=== PATIENT | male | born 1975 ===

== ENCOUNTER 2018-12-08 14:18 | Emergency (ER) | payer OTHER ==
[2018-12-08 14:25] VITALS: BP 104/66; PULSE 82; RESP 18; TEMP 98.6; O2SAT 96
[2018-12-08] MEDS ORDERED: Albuterol 0.083% Inhal Sol (2.5 mg/3 mL) UD INH STA (14:44)
[2018-12-08 15:10] LABS: BASO # 0.1 K/uL (0.0-0.2); BASO % 1.3 % (0.0-2.0); EOS # 0.1 K/uL (0.0-0.7); EOS % 1.2 % (0.0-4.0); HEMOGLOBIN 12.4 g/dL (12.0-18.0); LYMPH # 1.8 K/uL (1.0-4.3); LYMPH % 19.8 % (20.0-40.0); MEAN CELL VOLUME 72.6 fl (80.0-94.0); MEAN CORPUSCULAR HEMOGLOBIN 23.2 pg (27.0-31.0); MEAN PLATELET VOLUME 8.9 fl (7.2-11.7); MONO # 0.8 K/uL (0.0-0.8); MONO % 8.5 % (0.0-10.0); NEUT # 6.3 K/uL (1.8-7.0); NEUT % 69.2 % (50.0-75.0); NRBC % 0.1 % (0.0-0.0); RBC 5.33 Mil/uL (4.40-5.90); RED CELL DISTRIBUTION WIDTH 16.2 % (11.5-14.5); WHITE BLOOD COUNT 9.1 K/uL (4.8-10.8)
[2018-12-08] MEDS ORDERED: Albuterol 0.083% Inhal Sol (2.5 mg/3 mL) UD ONE (15:12)
[2018-12-08 15:21] LABS: URINE BACTERIA RARE (<OCC); URINE BILIRUBIN NEGATIVE (NEGATIVE); URINE BLOOD NEGATIVE (NEGATIVE); URINE CLARITY SLIGHTY-CLOUDY (Clear); URINE COLOR YELLOW (YELLOW); URINE GLUCOSE (UA) NEG (NEGATIVE); URINE LEUKOCYTE ESTERASE TRACE Leu/uL (Negative); URINE PROTEIN NEGATIVE (NEGATIVE); URINE UROBILINOGEN 0.2-1.0 mg/dL (0.2-1.0)
[2018-12-08 15:24] LABS: ALB/GLOB RATIO 1.4 (1.0-2.1); ALBUMIN 4.5 g/dL (3.5-5.0); ALT/SGPT 23 U/L (21-72); AST/SGOT 26 U/L (17-59); BLOOD UREA NITROGEN 21 mg/dl (9-20); CALCIUM 9.4 mg/dL (8.4-10.2); GFR NON-AFRICAN AMERICAN > 60
--- NOTE | 2018-12-08 15:34 | RAD ---
Date of service: 12/08/2018 HISTORY: Cough COMPARISON: No prior. TECHNIQUE: Chest PA and lateral FINDINGS: LINES AND TUBES: None. LUNG AND PLEURA: The lungs are well inflated and clear. No pleural effusion or pneumothorax. HEART AND MEDIASTINUM: The heart is not enlarged. No aortic atherosclerotic calcifications present. The hilar and mediastinal contours are within normal limits. SKELETAL STRUCTURES: The bony structures are within normal limits for the patient's age. VISUALIZED UPPER ABDOMEN: Normal. OTHER FINDINGS: None. IMPRESSION: No active pulmonary disease.
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
== END 2018-12-08 16:18 | disposition home or self-care (01) ==
LOC: H.ER 14:18 → SUPCPDRO 14:18 → H.ER 16:18
DX: M54.9 Dorsalgia, unspecified (principal); R05 Cough; F17.200 Nicotine dependence, unspecified, uncomplicated

== ENCOUNTER 2018-12-24 09:04 | Inpatient (IN) | payer OTHER ==
[2018-12-24 09:30] VITALS: O2SAT 100
[2018-12-24] MEDS ORDERED: Sodium Chloride 0.9% 1,000 ML IV STA (09:32)
[2018-12-24 10:15] LABS: BASO % 0.2 % (0.0-2.0); EOS % 0.3 % (0.0-4.0); HEMOGLOBIN 14.4 g/dL (12.0-18.0); LYMPH # 1.4 K/uL (1.0-4.3); LYMPH % 16.4 % (20.0-40.0); MEAN CELL VOLUME 72.4 fl (80.0-94.0); MEAN CORPUSCULAR HEMOGLOBIN 23.3 pg (27.0-31.0); MEAN CORPUSCULAR HGB CONC 32.2 g/dL (33.0-37.0); MEAN PLATELET VOLUME 9.6 fl (7.2-11.7); NEUT # 6.1 K/uL (1.8-7.0); NEUT % 71.1 % (50.0-75.0); NRBC % 0.1 % (0.0-0.0); RBC 6.18 Mil/uL (4.40-5.90); WHITE BLOOD COUNT 8.6 K/uL (4.8-10.8)
--- NOTE | 2018-12-24 11:36 | ED PDOC ---
HPI: Psych/Substance Abuse Time Seen by Provider: 12/24/18 09:13 Chief Complaint (Nursing): Substance Abuse Chief Complaint (Provider): Substance Abuse History Per: Patient History/Exam Limitations: no limitations Onset/Duration Of Symptoms: Days Associated Symptoms: Suicidal Thoughts. denies: Suicidal Plan Additional Complaint(s): 43 year old male with a history of heroin dependence who is presenting to the ED for evaluation of withdrawal symptoms associated with nausea, vomiting, back, and chest pain. Patient states that his last use was 3 days ago and admits that he was seen here a few days ago for cough and URI symptoms. He reports that he got a chest x-ray and was discharged home with a prescription but could not afford it. Patient states that he vomited 5 times and described it as a yellow clear fluid. He also states that he had non-bloody diarrhea and reports suicidal ideation with no verbalized plan. Patient offers no other medical complaints at this time but states that he wants assistance in entering a detoxification. PMD: none provided Past Medical History Reviewed: Historical Data, Nursing Documentation, Vital Signs Vital Signs: Last Vital Signs Temp 98.4 F 12/24/18 09:15 Pulse 64 12/24/18 09:15 Resp 20 12/24/18 09:15 BP 130/93 H 12/24/18 09:15 Pulse Ox 100 12/24/18 09:15 - Medical History PMH: No Chronic Diseases Denies: Deep Vein Thrombosis, Pulmonary Embolism - Surgical History Other surgeries: chest surgery - Family History Family History: States: Unknown Family Hx - Social History Current smoker - smoking cessation education provided: Yes (a pack a day ) Alcohol: Social Drugs: Cannabis, Opiates - Home Medications Home Medications: Ambulatory Orders Medication Instructions Recorded Albuterol HFA [Ventolin HFA 90 2 puff IH [id number] PRN #120 puff 12/08/18 mcg/actuation (8 g)] Azithromycin [Zithromax] 250 mg PO DAILY #6 tab 12/08/18 Promethazine DM [Phenergan DM 5 - 10 ml PO Q8 PRN #120 ml 12/08/18 Syrup] - Allergies Allergies/Adverse Reactions: Allergies Allergy/AdvReac Type Severity Reaction Status Date / Time No Known Allergies Allergy Verified 12/24/18 09:26 Review of Systems ROS Statement: Except As Marked, All Systems Reviewed And Found Negative Cardiovascular: Positive for: Chest Pain Gastrointestinal: Positive for: Nausea, Vomiting, Diarrhea Musculoskeletal: Positive for: Back Pain Psych: Positive for: Suicidal ideation Physical Exam - Reviewed Nursing Documentation Reviewed: Yes Vital Signs Reviewed: Yes - Physical Exam Appears: Positive for: Non-toxic, No Acute Distress Head Exam: Positive for: ATRAUMATIC, NORMAL INSPECTION, NORMOCEPHALIC Skin: Positive for: Normal Color, Warm, DRY Eye Exam: Positive for: EOMI, Normal appearance, PERRL ENT: Positive for: Other (dry mucous membranes ) Neck: Positive for: Normal, Painless ROM, Supple Cardiovascular/Chest: Positive for: Regular Rate, Rhythm. Negative for: Murmur Respiratory: Positive for: Normal Breath Sounds. Negative for: Respiratory Distress Gastrointestinal/Abdominal: Positive for: Normal Exam, Soft. Negative for: Tenderness Extremity: Positive for: Normal ROM. Negative for: Deformity, Swelling Neurological/Psych: Positive for: Awake, Alert, Normal Tone, Oriented (x3). Negative for: Motor/Sensory Deficits - Laboratory Results Result Diagrams: 12/24/18 10:03 12/24/18 10:03 - ECG O2 Sat by Pulse Oximetry: 100 (RA) Pulse Ox Interpretation: Normal Medical Decision Making Medical Decision Making: Time: 9:50 Impression: 43 year old male with suicidal ideation in setting of heroin dependence Plan: --EKG --Alcohol Serum --CMP --Urine Drug Screen --Crisis Evaluation --ED Urine Dipstick --CBC --IV Fluids --Toradol 30 mg IVP --Zofran 4 mg IV --1:1 Observation --urinalysis 12:45 Labs reviewed with no clinically significant abnormalities. Patient evaluated by crisis and will be admitted for depression and heroin dependence. He is medically cleared for psychiatric admission. Scribe Attestation: Documented by Lita Zarate, acting as a scribe for Berny Wood MD. Provider Scribe Attestation: All medical record entries made by the Scribe were at my direction and personally dictated by me. I have reviewed the chart and agree that the record accurately reflects my personal performance of the history, physical exam, medical decision making, and the department course for this patient. I have also personally directed, reviewed, and agree with the discharge instructions and disposition. Disposition - Clinical Impression Clinical Impression: Depression, Heroin dependence - Patient ED Disposition Is Patient to be Admitted: Yes - Disposition Disposition Time: 12:50 Condition: STABLE Forms: [employer] (Turkish)
[2018-12-24 11:42] LABS: ALB/GLOB RATIO 1.4 (1.0-2.1); ALBUMIN 4.6 g/dL (3.5-5.0); ALT/SGPT 28 U/L (21-72); AST/SGOT 23 U/L (17-59); BLOOD UREA NITROGEN 20 mg/dl (9-20); CALCIUM 9.8 mg/dL (8.4-10.2); GFR NON-AFRICAN AMERICAN > 60
[2018-12-24 12:21] LABS: PHENCYCLIDINE, UR NEGATIVE (NEGATIVE)
[2018-12-24 12:26] LABS: BARBITURATES, UR NEGATIVE (NEGATIVE); BENZODIAZEPINES, UR NEGATIVE (NEGATIVE); OPIATES, UR POSITIVE (NEGATIVE)
[2018-12-24 12:37] LABS: SQUAMOUS EPITHIAL < 1 /hpf (0-5); URINE AMORPHOUS SEDIMENT MANY /ul (<OCC); URINE BACTERIA RARE (<OCC); URINE BILIRUBIN NEGATIVE (NEGATIVE); URINE BLOOD NEGATIVE (NEGATIVE); URINE CLARITY TURBID (Clear); URINE COLOR YELLOW (YELLOW); URINE GLUCOSE (UA) NEG (NEGATIVE); URINE LEUKOCYTE ESTERASE NEG Leu/uL (Negative); URINE PROTEIN NEGATIVE (NEGATIVE)
--- NOTE | 2018-12-24 14:17 | RAD ---
Date of service: 12/24/2018 HISTORY: admit COMPARISON: 12/08/2018. FINDINGS: LUNGS: No active pulmonary disease. PLEURA: No significant pleural effusion identified, no pneumothorax apparent. CARDIOVASCULAR: No atherosclerotic calcification present Normal. OSSEOUS STRUCTURES: No significant abnormalities. VISUALIZED UPPER ABDOMEN: Normal. OTHER FINDINGS: None. IMPRESSION: No active disease. No significant interval change compared to the prior examination(s).
[2018-12-24] MEDS ORDERED: Alum-Mag Hydrox-Simethicone Susp (30 mL) PO PRN (15:02)
[2018-12-24] MEDS ORDERED: Magnesium Hydroxide Susp 30 ml UD PO PRN (15:02)
[2018-12-24] MEDS ORDERED: DiphenhydrAMINE 50 mg/ml Inj IM PRN (15:02)
--- NOTE | 2018-12-24 17:12 | PCM.BM ---
<Amada Godoy - Last Filed: 12/24/18 17:13> Treatment Plan Problems - Problems identified on initial assessmt Auditory Hallucinations Date Initiated: 12/24/18 Time Initiated: 17:10 Assessment reference: NA Inefffective Coping Date Initiated: 12/24/18 Time Initiated: 17:10 Assessment reference: NA Fellings of Worthlessness Date Initiated: 12/24/18 Time Initiated: 17:10 Assessment reference: NA Treatment assets and liabiliti Patient Assests: cooperative, educated, motivated, ADL independent Patient Liabilities: live alone, financial problems (worried about loosing his kob due to staying in hospital), relationship conflicts (broke up with girlfriend), substance abuse, medical problems (penumonia, hep c) - Milieu Protocol Maintain good personal hygiene: daily Encourage regular showers, daily Remind patient to perform daily oral care, daily Assist patient to perform ADL's Maintain personal safety: daily Educate patient to report safety concerns to staff, daily Monitor environment for contraband/sharps, every shift Educate patient to report safety concerns to staff, every shift Monitor environment for contraband/sharps Medication safety: Monitor for expected outcome, potential side effects: daily, every shift, Assess barriers to learning: daily, every shift, Assess readiness for medication education: daily, every shift <Jenny Matthews - Last Filed: 12/27/18 14:54> <Everton Reyes - Last Filed: 12/28/18 10:20> Treatment Plan Problems - Problems identified on initial assessmt Auditory Hallucinations Date Initiated: 12/24/18 Time Initiated: 17:10 Assessment reference: NA Inefffective Coping Date Initiated: 12/24/18 Time Initiated: 17:10 Assessment reference: NA Fellings of Worthlessness Date Initiated: 12/24/18 Time Initiated: 17:10 Assessment reference: NA Feelings of Worthlessness Date Initiated: 12/24/18 Time Initiated: 17:10 Assessment reference: NA - Diagnosis (1) Depression Status: Acute Interventions: 12/28/18 10:19 START ZOLOFT, PSYCHOTHERAPY (2) Heroin dependence Status: Acute Interventions: MOTIVATIONAL THERAPY 12/28/18 10:19
--- NOTE | 2018-12-24 18:26 | CARD ---
APPROVED REPORT Date of service: 12/24/2018 EKG Measurement Heart [id number] <Conclusion> Sinus bradycardia Otherwise normal ECG
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
--- NOTE | 2018-12-28 12:28 | PCM.PYCHPN ---
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, motivational therapy provided about effect of substance use on current mental and physical condition discussed increasing dose of zoloft encouraged pt to attend groups, pt denied any current thoughts of self harm on the unit DSM 5 Symptoms Update: major depression OPIATE DEPENDENCE Medication Change: Yes (increase zoloft) Medical Record Reviewed: Yes Mental Status Examination - Cognitive Function Orientation: Person, Place, Situation, Time Memory: Intact Attention: WNL Concentration: WNL Association: WNL Decription of patient's judgement and insights: fair insight poor judgment - Mood Mood: Depressed - Affect Affect: Constricted - Speech Speech: Soft - Formal Thought Process Formal Thought Process: No Impairment Psychotic Thoughts and Behaviors: PT DENIED PERCEPTUAL DISTURBANCES - Suicidal Ideation Suicidal Ideation: No - Homicidal Ideation Homicidal Ideation: No Goal/Treatment Plan - Goal/Treatment Plan Need for Continued Stay: Severe depression anxiety, Discharge may exacerbated symptoms Progress Toward Problem(s) and Goals/Treatment Plan: INCREASE zoloft 50 mg daily cbt group and supportive therapy
[2018-12-29 10:45] VITALS: RESP 18
--- NOTE | 2018-12-29 14:24 | PCM.PYCHPN ---
Psychiatric Progress Note - Psychiatric Progress Note Patient seen today, length of contact: pt evaluated discussed with team, chart reviewed Patient Chief Complaint: I am still feeling down and anxious Problems Identified/Issues Discussed: pt evaluated , presenting with depressed mood and tearful affect, worried about loosing his job and his current living situation , motivational therapy provided discussing effect of substance use on current mental and social situation, discussed referral for maintenance treatment , pt reported decreased sleep, discussed starting trazodone and gradual increase in dose of zoloft , no reported side effects , no reported perceptual disturbances DSM 5 Symptoms Update: substance induced mood disorder depression opiate abuse Medication Change: Yes (start trazodone ) Medical Record Reviewed: Yes Mental Status Examination - Cognitive Function Orientation: Person, Place, Situation, Time Memory: Intact Attention: WNL Concentration: WNL Association: WNL Decription of patient's judgement and insights: fair insight poor judgment - Mood Mood: Depressed - Affect Affect: Constricted - Speech Speech: Soft - Formal Thought Process Formal Thought Process: No Impairment Psychotic Thoughts and Behaviors: PT DENIED PERCEPTUAL DISTURBANCES - Suicidal Ideation Suicidal Ideation: No - Homicidal Ideation Homicidal Ideation: No Goal/Treatment Plan - Goal/Treatment Plan Need for Continued Stay: Severe depression anxiety, Discharge may exacerbated symptoms Progress Toward Problem(s) and Goals/Treatment Plan: zoloft 50 mg daily/increase gradually start trazodone 100mg qhs cbt group and supportive therapy referral to [facility] on discharge
--- NOTE | 2018-12-30 13:16 | PCM.PYCHPN ---
Psychiatric Progress Note - Psychiatric Progress Note Patient seen today, length of contact: pt evaluated discussed with team, chart reviewed Patient Chief Complaint: I am worried how to handle things outside Problems Identified/Issues Discussed: pt evaluated , presenting with anxious affect and depressed mood, continues to report early insomnia, reported worried about his current living situation being homeless, motivational therapy provided, discussed with pt options of out patient [facility] programs, NA meetingswhich he can attend while holding a job also discussed importance of starting maintenance treatment to avoid relapse, pt noted in day room socializing with other patients, no noted change inappetite denied suicidal or homicidal ideation, denied perceptual disturbances DSM 5 Symptoms Update: major depression opiate use Medication Change: Yes (increase zoloft) Medical Record Reviewed: Yes Mental Status Examination - Cognitive Function Orientation: Person, Place, Situation, Time Memory: Intact Attention: WNL Concentration: WNL Association: WNL Decription of patient's judgement and insights: fair insight poor judgment - Mood Mood: Depressed - Affect Affect: Constricted - Speech Speech: Soft - Formal Thought Process Formal Thought Process: No Impairment Psychotic Thoughts and Behaviors: PT DENIED PERCEPTUAL DISTURBANCES - Suicidal Ideation Suicidal Ideation: No - Homicidal Ideation Homicidal Ideation: No Goal/Treatment Plan - Goal/Treatment Plan Need for Continued Stay: Severe depression anxiety, Discharge may exacerbated symptoms Progress Toward Problem(s) and Goals/Treatment Plan: zoloft 50 mg daily/increase gradually trazodone 100mg qhs cbt group and supportive therapy referral to [facility] on discharge
--- NOTE | 2018-12-31 13:55 | PCM.PYCHPN ---
Psychiatric Progress Note - Psychiatric Progress Note Patient seen today, length of contact: pt evaluated discussed with team, chart reviewed Patient Chief Complaint: I am better with the medications Problems Identified/Issues Discussed: pt evaluated ,with treatmant team, improved mood with increasing zoloft no reported side effects, feeling anxious about his financial situation, CBT provided, discussed with pt importance of NA meetings, and pursuing maintenance treatment to avoid relapse, pt presenting with brighter affect, no current changes in sleep or appetite denied suicidal or homicidal ideation, denied perceptual disturbances DSM 5 Symptoms Update: major depression opiate abuse Medication Change: No Medical Record Reviewed: Yes Mental Status Examination - Cognitive Function Orientation: Person, Place, Situation, Time Memory: Intact Attention: WNL Concentration: WNL Association: WNL Decription of patient's judgement and insights: fair insight poor judgment - Mood Mood: Anxious - Affect Affect: Constricted - Speech Speech: Appropriate - Formal Thought Process Formal Thought Process: No Impairment Psychotic Thoughts and Behaviors: PT DENIED PERCEPTUAL DISTURBANCES - Suicidal Ideation Suicidal Ideation: No - Homicidal Ideation Homicidal Ideation: No Goal/Treatment Plan - Goal/Treatment Plan Need for Continued Stay: Severe depression anxiety, Discharge may exacerbated symptoms Progress Toward Problem(s) and Goals/Treatment Plan: zoloft 50 mg daily/ trazodone 100mg qhs cbt group and supportive therapy referral to [facility] on discharge
--- NOTE | 2019-01-01 08:26 | PCM.PYCHPN ---
Psychiatric Progress Note - Psychiatric Progress Note Patient seen today, length of contact: pt evaluated discussed with team, chart reviewed Patient Chief Complaint: pt reports feeling less depressed and less anxious and has improved on the current regimen of zoloft and sleeping better .pt denies suicidal ideation .pt denies hallucinations . Medication Change: No Medical Record Reviewed: Yes Mental Status Examination - Cognitive Function Orientation: Person, Place, Situation, Time Memory: Intact Attention: WNL Concentration: WNL Association: WNL Fund of Knowledge: WNL - Mood Mood: Anxious - Affect Affect: Constricted - Speech Speech: Appropriate - Formal Thought Process Formal Thought Process: No Impairment - Suicidal Ideation Suicidal Ideation: No - Homicidal Ideation Homicidal Ideation: No Goal/Treatment Plan - Goal/Treatment Plan Need for Continued Stay: Severe depression anxiety, Discharge may exacerbated symptoms Progress Toward Problem(s) and Goals/Treatment Plan: pt is stable for d/c to home today and will follow up in outpt with [facility] program better. - Smoking Cessation Smoking Cessation Initiated: No
[2019-01-01 10:41] VITALS: BP 136/89; PULSE 81; TEMP 98
== END 2019-01-01 14:15 | disposition home or self-care (01) | DRG 885 ==
LOC: H.ER 09:04 → H.ERHOLD 12:41 → H.PSYCH 14:40
PROVIDERS: ADMIT Psychiatry & Neurology Psychiatry; ATTEND Psychiatry & Neurology Psychiatry
PROC: GZHZZZZ Group Psychotherapy (ICD-10-PCS; principal; 2018-12-25)
PROC: GZ51ZZZ Individual Psychotherapy, Behavioral (ICD-10-PCS; 2018-12-25)
PROC: GZ56ZZZ Individual Psychotherapy, Supportive (ICD-10-PCS; 2018-12-25)
DX: F32.2 Major depressive disorder, single episode, severe without psychotic features (principal); R45.851 Suicidal ideations; F11.23 Opioid dependence with withdrawal; R44.0 Auditory hallucinations; F11.20 Opioid dependence, uncomplicated; F43.10 Post-traumatic stress disorder, unspecified; Z79.899 Other long term (current) drug therapy; Z91.5 Personal history of self-harm; B19.20 Unspecified viral hepatitis C without hepatic coma; F10.10 Alcohol abuse, uncomplicated; F12.90 Cannabis use, unspecified, uncomplicated; F17.210 Nicotine dependence, cigarettes, uncomplicated; F19.94 Other psychoactive substance use, unspecified with psychoactive substance-induced mood disorder; Y90.0 Blood alcohol level of less than 20 mg/100 ml

== ENCOUNTER 2019-01-06 11:29 | Inpatient (IN) | payer OTHER ==
[2019-01-06 11:33] VITALS: BMI 21.0
[2019-01-06 13:10] LABS: HEMOGLOBIN 13.6 g/dL (12.0-18.0); MEAN CELL VOLUME 72.5 fl (80.0-94.0); MEAN CORPUSCULAR HEMOGLOBIN 23.3 pg (27.0-31.0); MEAN CORPUSCULAR HGB CONC 32.1 g/dL (33.0-37.0); RBC 5.84 Mil/uL (4.40-5.90); RED CELL DISTRIBUTION WIDTH 16.4 % (11.5-14.5); WHITE BLOOD COUNT 8.5 K/uL (4.8-10.8)
[2019-01-06 13:16] LABS: URINE BACTERIA RARE (<OCC); URINE BILIRUBIN NEGATIVE (NEGATIVE); URINE BLOOD NEGATIVE (NEGATIVE); URINE CLARITY CLEAR (Clear); URINE COLOR COLORLESS (YELLOW); URINE GLUCOSE (UA) NEG (NEGATIVE); URINE LEUKOCYTE ESTERASE NEG Leu/uL (Negative); URINE PROTEIN NEGATIVE (NEGATIVE); URINE UROBILINOGEN 0.2-1.0 mg/dL (0.2-1.0)
[2019-01-06 13:26] LABS: ALB/GLOB RATIO 1.4 (1.0-2.1); ALBUMIN 4.5 g/dL (3.5-5.0); ALT/SGPT 30 U/L (21-72); AST/SGOT 33 U/L (17-59); BLOOD UREA NITROGEN 19 mg/dl (9-20); CALCIUM 9.2 mg/dL (8.4-10.2); GFR NON-AFRICAN AMERICAN > 60
--- NOTE | 2019-01-06 13:45 | RAD ---
Date of service: 01/06/2019 HISTORY: admission, si COMPARISON: Frontal chest radiograph 12/24/2018. TECHNIQUE: Chest PA and lateral views FINDINGS: LUNGS: No active pulmonary disease. PLEURA: No significant pleural effusion identified. No pneumothorax apparent. CARDIOVASCULAR: No aortic atherosclerotic calcification present. Normal cardiac size. No pulmonary vascular congestion. OSSEOUS STRUCTURES: No significant abnormalities. VISUALIZED UPPER ABDOMEN: Normal. OTHER FINDINGS: None. IMPRESSION: No interval acute cardiopulmonary disease appreciated.
[2019-01-06 14:13] LABS: BARBITURATES, UR NEGATIVE (NEGATIVE); BENZODIAZEPINES, UR NEGATIVE (NEGATIVE); OPIATES, UR POSITIVE (NEGATIVE); PHENCYCLIDINE, UR NEGATIVE (NEGATIVE)
[2019-01-06 14:55] VITALS: O2SAT 100
--- NOTE | 2019-01-06 14:55 | ED PDOC ---
HPI: Psych/Substance Abuse Time Seen by Provider: 01/06/19 12:09 Chief Complaint (Nursing): Psychiatric Evaluation Chief Complaint (Provider): SI History Per: Patient History/Exam Limitations: no limitations Onset/Duration Of Symptoms: Days Current Symptoms Are (Timing): Still Present Additional Complaint(s): 43 yo male with no medical problems presents with SI. PT states he uses heroin and plans on overdosing. PT denies suicide attempt in the past. Pt crying in ER. PT denies medical complaints. Past Medical History Reviewed: Historical Data, Nursing Documentation, Vital Signs Vital Signs: Last Vital Signs Temp 98.8 F 01/06/19 11:33 Pulse 82 01/06/19 11:33 Resp 20 01/06/19 11:33 BP 156/101 H 01/06/19 11:33 Pulse Ox 100 01/06/19 11:33 Primary Care Provider: FAMILY PROVIDER,NO - Medical History PMH: No Chronic Diseases, Pneumonia (pt believes he has pneumonia. xray pending) Denies: Diabetes, Deep Vein Thrombosis, Hepatitis, HIV, HTN, Pulmonary Embolism, Chronic Kidney Disease, Seizures, Sexually Transmitted Disease - Surgical History Surgical History: No Surg Hx - Family History Family History: States: Unknown Family Hx - Living Arrangements Living Arrangements: With Family - Social History Current smoker - smoking cessation education provided: No - Home Medications Home Medications: Ambulatory Orders Medication Instructions Recorded Sertraline [Zoloft] 50 mg PO DAILY 30 Days #30 tab 12/31/18 traZODone [Desyrel] 200 mg PO HS 30 Days #60 tab 12/31/18 - Allergies Allergies/Adverse Reactions: Allergies Allergy/AdvReac Type Severity Reaction Status Date / Time No Known Allergies Allergy Verified 01/06/19 12:24 Review of Systems ROS Statement: Except As Marked, All Systems Reviewed And Found Negative Constitutional: Negative for: Fever, Chills Cardiovascular: Negative for: Chest Pain, Palpitations Respiratory: Negative for: Cough, Shortness of Breath Gastrointestinal: Negative for: Nausea, Vomiting, Abdominal Pain Skin: Negative for: Rash, Lesions Psych: Positive for: Depression, Suicidal ideation. Negative for: Psychosis, Withdrawal Physical Exam - Reviewed Nursing Documentation Reviewed: Yes Vital Signs Reviewed: Yes - Physical Exam Appears: Positive for: Well, Non-toxic, No Acute Distress Head Exam: Positive for: ATRAUMATIC, NORMAL INSPECTION, NORMOCEPHALIC Skin: Positive for: Normal Color, Warm, DRY Eye Exam: Positive for: EOMI, Normal appearance, PERRL ENT: Positive for: Normal ENT Inspection Neck: Positive for: Normal, Painless ROM Cardiovascular/Chest: Positive for: Regular Rate, Rhythm Respiratory: Positive for: Normal Breath Sounds. Negative for: Accessory Muscle Use, Respiratory Distress Gastrointestinal/Abdominal: Positive for: Normal Exam, Soft Back: Positive for: Normal Inspection Extremity: Positive for: Normal ROM Neurological/Psych: Positive for: Awake, Alert, Normal Tone - Laboratory Results Result Diagrams: 01/06/19 12:50 01/06/19 12:50 Lab Results: Total Bilirubin 0.9 mg/dl (0.2-1.3) 01/06/19 12:50 AST 33 U/L (17-59) 01/06/19 12:50 ALT 30 U/L (21-72) 01/06/19 12:50 Alkaline Phosphatase 60 U/L (38-126) 01/06/19 12:50 Total Protein 7.7 G/DL (6.3-8.2) 01/06/19 12:50 Albumin 4.5 g/dL (3.5-5.0) 01/06/19 12:50 Globulin 3.2 gm/dL (2.2-3.9) 01/06/19 12:50 Albumin/Globulin Ratio 1.4 (1.0-2.1) 01/06/19 12:50 Urine Color Colorless (YELLOW) 01/06/19 12:50 Urine Clarity Clear (Clear) 01/06/19 12:50 Urine pH 7.0 (5.0-8.0) 01/06/19 12:50 Ur Specific [place] < 1.005 (1.003-1.030) 01/06/19 12:50 Urine Protein Negative mg/dL (NEGATIVE) 01/06/19 12:50 Urine Glucose (UA) Neg mg/dL (NEGATIVE) 01/06/19 12:50 Urine Ketones Negative mg/dL (NEGATIVE) 01/06/19 12:50 Urine Blood Negative (NEGATIVE) 01/06/19 12:50 Urine Nitrate Negative (NEGATIVE) 01/06/19 12:50 Urine Bilirubin Negative (NEGATIVE) 01/06/19 12:50 Urine Urobilinogen 0.2-1.0 mg/dL (0.2-1.0) 01/06/19 12:50 Ur Leukocyte Esterase Neg Paul/uL (Negative) 01/06/19 12:50 Urine RBC (Auto) < 1 /hpf (0-3) 01/06/19 12:50 Urine Microscopic WBC < 1 /hpf (0-5) 01/06/19 12:50 Urine Bacteria Rare (<OCC) 01/06/19 12:50 - ECG O2 Sat by Pulse Oximetry: 100 Pulse Ox Interpretation: Normal Medical Decision Making Medical Decision Making: Crisis evaluation completed. CXR normal. EKG reviewed. Labs normal. (+) heroin on drug screen Disposition - Clinical Impression Clinical Impression: Depressive disorder - Patient ED Disposition Is Patient to be Admitted: Yes - Disposition Disposition Time: 15:05 Condition: GOOD - Pt Status Changed To: Hospital Disposition Of: Inpatient - Admit Certification Admit to Inpatient:: After my assessment, the patient will require hospitalization for at least two midnights. This is because of the severity of symptoms shown, intensity of services needed, and/or the medical risk in this patient being treated as an outpatient. - POA Present On Arrival: None
--- NOTE | 2019-01-06 16:01 | CARD ---
APPROVED REPORT Date of service: 01/06/2019 EKG Measurement Heart [id number] <Conclusion> Normal sinus rhythm with sinus arrhythmia Normal ECG
--- NOTE | 2019-01-06 18:27 | PCM.BM ---
<Titi Belcher - Last Filed: 01/06/19 18:28> Treatment Plan Problems - Problems identified on initial assessmt Feelings of Worthlessness Date Initiated: 01/06/19 Time Initiated: 18:27 Date resolved: 01/06/19 Assessment reference: NA Status: Monitor Priority: 1 Treatment assets and liabiliti Patient Assests: cooperative, educated, motivated, ADL independent Patient Liabilities: financial problems, poor support system, substance abuse - Milieu Protocol Maintain good personal hygiene: every shift Encourage regular showers, every shift Remind patient to perform daily oral care, every shift Assist patient to perform ADL's Conduct patient checks and document Observation sheet: Q15 minutes Maintain personal safety: every shift Educate patient to report safety concerns to staff, every shift Monitor environment for contraband/sharps Medication safety: Monitor for expected outcome, potential side effects: daily, Assess barriers to learning: daily, Assess readiness for medication education: daily <Jenny Matthews - Last Filed: 01/10/19 15:38> <Everton Reyes - Last Filed: 01/12/19 15:04> - Diagnosis (1) Heroin dependence Status: Acute Interventions: 01/12/19 15:04 motivational therapy
[2019-01-06] MEDS ORDERED: Magnesium Hydroxide Susp 30 ml UD PO PRN (20:55)
[2019-01-06] MEDS ORDERED: DiphenhydrAMINE 50 mg/ml Inj IM PRN (20:55)
[2019-01-06] MEDS ORDERED: Alum-Mag Hydrox-Simethicone Susp (30 mL) PO PRN (20:55)
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
--- NOTE | 2019-01-07 13:58 | PCM.PSYCH ---
Initial Psychiatric Evaluation - Initial Psychiatric Evaluation Type of Admission: Voluntary Legal Status: Capacity Chief Complaint (in patient's own words): I am hearing voices that is telling me I am no good History of Present Illness and Precipitating Events: pt is 43 ys old male with previous diagnosis of depression and opiate use , recently discharged from hospital, became increasingly depressed in the context of loosing his job, his girlfriend and his appartment, relapsed on heroin and alcohol, pt started having auditory hallucinations, tputting him down, feeling worthless and helpless started having suicidal ideation with plan to over dose came to ER seeking help Current Medications: Active Medications Generic Name Dose Route Start Last Admin Trade Name Freq PRN Reason Stop Dose Admin Acetaminophen 650 mg 01/06/19 21:07 Tylenol 325mg Tab PO Q4 PRN Pain, moderate (4-7) Al Hydrox/Mg Hydrox/Simethicone 30 ml 01/06/19 20:55 Maalox Plus 30 Ml PO Q4 PRN Dyspepsia Aripiprazole 2 mg 01/07/19 22:00 Abilify PO HS HELGA Clonidine HCl 0.1 mg 01/07/19 01:00 01/07/19 10:04 Catapres PO 01/10/19 01:01 0.1 mg Q8 HELGA Administration Diphenhydramine HCl 50 mg 01/06/19 20:55 Benadryl IM Q6 PRN Extrapyramidal S/S Unable PO Diphenhydramine HCl 50 mg 01/06/19 20:55 Benadryl PO Q6 PRN Extrapyramidal Symptoms Haloperidol 5 mg 01/06/19 20:55 Haldol PO Q4 PRN Agitation Haloperidol Lactate 5 mg 01/06/19 20:55 Haldol IM Q4 PRN Agitation, Unable to Take PO Ibuprofen 600 mg 01/06/19 21:01 Motrin Tab PO 01/09/19 21:02 Q6 PRN Pain, severe (8-10) Loperamide HCl 2 mg 01/06/19 21:01 Imodium PO 01/09/19 21:02 Q6 PRN loose bowel movement Lorazepam 2 mg 01/06/19 20:55 Ativan IM Q4 PRN Anxiety/Agitation,Unable PO Lorazepam 1 mg 01/06/19 21:15 Ativan PO Q8 PRN Anxiety/Agitation Magnesium Hydroxide 30 ml 01/06/19 20:55 Milk Of Magnesia PO HS PRN Constipation Sertraline HCl 25 mg 01/08/19 09:00 Zoloft PO DAILY HELGA Trazodone HCl 200 mg 01/06/19 22:00 01/06/19 22:52 Desyrel PO 100 mg HS HELGA Administration Past Psychiatric History - Past Psychiatric History Explanation of prior treatment: at least two inpatient hospitalizations for depression History of ETOH/Drug Use: alcohol and opiate use Pertinent Medical Hx (Current Medical&Sleep Prob, Allergies): Allergies Allergy/AdvReac Type Severity Reaction Status Date / Time No Known Allergies Allergy Verified 01/06/19 12:24 Sertraline [Zoloft] 50 mg PO DAILY 30 Days #30 tab 12/31/18 traZODone [Desyrel] 200 mg PO HS 30 Days #60 tab 12/31/18 Mental Status Examination - Personal Presentation Personal Presentation: Looks older than stated age - Affect Affect: Constricted, Depressed - Motor Activity Motor Activity: Psychomotor Retardation - Reliability in Providing Information Reliability in Providing Information: Fair - Speech Speech: Relevant - Mood Mood: Depressed, Anxious - Formal Thought Process Formal Thought Process: Hallucinations - Hallucinations/Delusions Hallucinations: Auditory - Obsessions/Compulsions Obsessions: No Compulsions: No - Cognitive Functions Orientation: Person Sensorium: Alert Attention/Concentration: Easily distracted Abstract Thinking: [place] Judgement: Imparied, as evidence by: Poor judgement Memory: Recent intact, as evidence by: Ability to recall events of the day - Risk Risk: Suicidal, Withdrawal, Diminished functioning - Strength & Assets Inventory Strength & Assets Inventory: Life experience - Limitations Additional comments: poor social support DSM 5 DX - DSM 5 DSM 5 Diagnosis: opiate use disorder major depression - Recommended/Plan of Treatment Treatment Recommendations and Plan of Treatment: pt will be started on clonidine protocol will be monitored for symptoms and signs of opiate withdrawal abilify 2mg qhs increase gradually zoloft 25mg daily motivational group and supportive therapy internal medicine consult , referral to rehab
--- NOTE | 2019-01-08 11:09 | PCM.PYCHPN ---
Psychiatric Progress Note - Psychiatric Progress Note Patient seen today, length of contact: Pt evaluated, case discussed w/ team, chart reviewed Patient Chief Complaint: Suicidal ideation Problems Identified/Issues Discussed: Patient is irritable w/ designer/writer. He reports feeling depressed w/ continued suicidal ideation w/o specific plan. He continues to report AH, but will not tell designer/writer what the voices say. He reports poor sleep/appetite and hopelessness. Medication Change: Yes (Increase Zoloft tomorow AM) Medical Record Reviewed: Yes Consults ordered or reviewed: Medicine consult Mental Status Examination - Cognitive Function Orientation: Person, Place, Situation, Time Memory: Intact Decription of patient's judgement and insights: Poor I/J - Mood Mood: Depressed, Anxious - Affect Affect: Constricted, Depressed - Formal Thought Process Formal Thought Process: Hallucinations Psychotic Thoughts and Behaviors: +AH - Suicidal Ideation Suicidal Ideation: Yes Plan: No specific plan - Homicidal Ideation Homicidal Ideation: No Goal/Treatment Plan - Goal/Treatment Plan Need for Continued Stay: Remain at risks for inpatient hospitalization, Severe depression anxiety, Discharge may exacerbated symptoms Progress Toward Problem(s) and Goals/Treatment Plan: Major Depressive Disorder; Opioid Use Disorder -Increase Zoloft tomorrow AM -Continue Trazodone and Ability -Clonidine and PRNs for opioid withdrawal symptoms -Individual and group therapy -Medicine consult -Psychoeducation -Disposition planning
--- NOTE | 2019-01-09 09:59 | PCM.PYCHPN ---
Psychiatric Progress Note - Psychiatric Progress Note Patient seen today, length of contact: Pt evaluated, case discussed w/ team, chart reviewed Patient Chief Complaint: Suicidal ideation Problems Identified/Issues Discussed: Patient continues to be irritable. He reports feeling depressed w/ intermittent AH. He reports that yesterday he had CAH to kill himself or telling him to kill others, but he is able to contract for safety at this time and denies acute idea tion to harm himself or others. He reports poor sleep/appetite and hopelessness. We discussed continued titration of Zoloft and Abilify. Medication Change: Yes (Increase Abilify and Zoloft) Medical Record Reviewed: Yes Consults ordered or reviewed: Medicine consult Mental Status Examination - Cognitive Function Orientation: Person, Place, Situation, Time Memory: Intact Attention: WNL Concentration: WNL Association: WNL Fund of Knowledge: WN Decription of patient's judgement and insights: Poor I/J - Mood Mood: Depressed, Anxious - Affect Affect: Constricted, Depressed - Formal Thought Process Formal Thought Process: Hallucinations Psychotic Thoughts and Behaviors: +AH - Suicidal Ideation Suicidal Ideation: Yes Plan: Denies acute plan - Homicidal Ideation Homicidal Ideation: No Goal/Treatment Plan - Goal/Treatment Plan Need for Continued Stay: Remain at risks for inpatient hospitalization, Severe depression anxiety, Discharge may exacerbated symptoms Progress Toward Problem(s) and Goals/Treatment Plan: Major Depressive Disorder; Opioid Use Disorder -Increase Zoloft -Increase Abilify -Continue Trazodone -Clonidine and PRNs for opioid withdrawal symptoms -Individual and group therapy -Medicine consult -Psychoeducation -Disposition planning
--- NOTE | 2019-01-10 14:59 | PCM.PYCHPN ---
Psychiatric Progress Note - Psychiatric Progress Note Patient seen today, length of contact: Pt evaluated, case discussed w/ team, chart reviewed Patient Chief Complaint: I still hear voices and I am depressed Problems Identified/Issues Discussed: pt seen with treatment team, presenting with depressed mood and affect, reported contines to have non command auditory hallucinations, discussed increasing dose of abilify, motivational therapy provided in reference to effect of substance use on curent mental and physical status encouraged pt to attend groups, pt denied any current active thoughts of self harm Medical Problems: at least two inpatient hospitalizations for depression DSM 5 Symptoms Update: major depression opiate dependence Medication Change: Yes (Increase Abilify and Zoloft) Medical Record Reviewed: Yes Mental Status Examination - Cognitive Function Orientation: Person, Place, Situation, Time Memory: Intact Attention: WNL Concentration: WNL Association: WNL Fund of Knowledge: WNL - Mood Mood: Depressed, Anxious - Affect Affect: Constricted, Depressed - Speech Speech: Soft - Formal Thought Process Formal Thought Process: Hallucinations - Suicidal Ideation Suicidal Ideation: No - Homicidal Ideation Homicidal Ideation: No Goal/Treatment Plan - Goal/Treatment Plan Need for Continued Stay: Remain at risks for inpatient hospitalization, Severe depression anxiety, Discharge may exacerbated symptoms Progress Toward Problem(s) and Goals/Treatment Plan: increase abilify 10mg zoloft 50mg daily motivational group and supportive therapy referral to rehab
--- NOTE | 2019-01-11 15:36 | PCM.PYCHPN ---
Psychiatric Progress Note - Psychiatric Progress Note Patient seen today, length of contact: Pt evaluated, case discussed w/ team, chart reviewed Patient Chief Complaint: I want to go to rehab Problems Identified/Issues Discussed: pt evaluated, observed on the unit attending groups, interacting with staff and other patients, no reported changes in sleep or appetite, reported mild sedation in the morning, discussed lowering dose of trazodone , no reported side efefcts of abilify, denied active thoughts of self harm, denied command hallucinations Medical Problems: at least two inpatient hospitalizations for depression Medication Change: No Medical Record Reviewed: Yes Mental Status Examination - Cognitive Function Orientation: Person, Place, Situation, Time Memory: Intact Attention: WNL Concentration: WNL Association: WNL Fund of Knowledge: WNL - Mood Mood: Depressed, Anxious - Affect Affect: Constricted, Depressed - Speech Speech: Soft - Formal Thought Process Formal Thought Process: Hallucinations - Suicidal Ideation Suicidal Ideation: No - Homicidal Ideation Homicidal Ideation: No Goal/Treatment Plan - Goal/Treatment Plan Need for Continued Stay: Remain at risks for inpatient hospitalization, Severe depression anxiety, Discharge may exacerbated symptoms Progress Toward Problem(s) and Goals/Treatment Plan: abilify 10mg zoloft 25mg daily trazodone 100mg qhs motivational group and supportive therapy referral to rehab
--- NOTE | 2019-01-12 15:07 | PCM.PYCHPN ---
Psychiatric Progress Note - Psychiatric Progress Note Patient seen today, length of contact: Pt evaluated, case discussed w/ team, chart reviewed Patient Chief Complaint: I am motivated to get treatment Problems Identified/Issues Discussed: pt evaluated, presenting with better mood , brighter affect, no reported side effects of medications, motivated to start rehab, denied any current hallucinations , denied suicidal or homicidal ideation Medical Problems: at least two inpatient hospitalizations for depression DSM 5 Symptoms Update: major depression opiate dependence Medication Change: No Medical Record Reviewed: Yes Mental Status Examination - Cognitive Function Orientation: Person, Place, Situation, Time Memory: Intact Attention: WNL Concentration: WNL Association: WNL Fund of Knowledge: WNL - Mood Mood: Anxious - Affect Affect: Constricted, Depressed - Speech Speech: Appropriate, Soft - Formal Thought Process Formal Thought Process: No Impairment - Suicidal Ideation Suicidal Ideation: No - Homicidal Ideation Homicidal Ideation: No Goal/Treatment Plan - Goal/Treatment Plan Need for Continued Stay: Remain at risks for inpatient hospitalization, Severe depression anxiety, Discharge may exacerbated symptoms Progress Toward Problem(s) and Goals/Treatment Plan: abilify 10mg zoloft 25mg daily trazodone 100mg qhs motivational group and supportive therapy referral to rehab
[2019-01-13 09:25] VITALS: BP 125/8; PULSE 80; RESP 18; TEMP 98.5
--- NOTE | 2019-01-13 10:15 | PCM.PYCHDC ---
Mental Status Examination - Mental Status Examination Orientation: Person, Place, Situation, Time Memory: Intact Mood: Neutral Affect: Broad Speech: Appropriate Attention: WNL Concentration: WNL Association: WNL Fund of Knowledge: WNL Formal Thought Process: No Impairment Description of patient's judgement and insight: Improved I/J Psychotic Thoughts and Behaviors: No AH/VH/paranoia/delusions Suicidal Ideation: No Current Homicidal Ideation?: No Discharge Summary - Discharge Note Reason for Hospitalization: 43 yo male presented w/ worsening depression, suicidal ideation and AH in the context of heroin abuse. Consultations:: List each consultation separately and include: 1. Reason for request. 2. Findings. 3. Follow-up Consultations: Medicine consult Summary of Hospital Course include:: 1. Description of specific treatment plan utilized for patients during their course of treatmen. 2. Summarize the time- course for resolution of acute symptoms and/or regressed behaviors. 3. Describe issues identified and worked on during hospitalization. 4. Describe medication utilized. 5. Describe medical problems identified and treated. 6. Reassessment of suicide risk Summary of Hospital Course: Patient was admitted to the psychiatry unit. Individual and group therapy were provided. Patient was stabilized on Abilify 10 mg PO Daily, Zoloft 25 mg PO Daily and Trazodone 100 mg PO HS. He denies acute depression /anxiety/AH/VH/paranoia/delusions and is psychiatrically stable for discharge at this time. - Final Diagnosis (DSM 5) Condition upon Discharge: GOOD DSM 5: Major Depressive Disorder; Opioid Use Disorder Disposition: HOME/ ROUTINE Follow-up Treatment Plan: Discharge with outpatient follow-up Prescriptions/Medication Reconciliation: ARIPiprazole [Abilify] 10 mg PO DAILY 30 Days #30 tab Sertraline [Zoloft] 25 mg PO DAILY 30 Days #30 tab traZODone [Desyrel] 100 mg PO HS 30 Days #30 tab - Smoking Cessation Smoking Cessation Medication prescribed: No Reason for not providing: Patient declined - Antipsychotic Medications Pt discharged on 2 or more routine antipsychotic medications: No
== END 2019-01-13 13:40 | disposition home or self-care (01) | DRG 881 ==
LOC: H.ER 11:29 → H.ERHOLD 15:31 → H.PSYCH 18:05
PROVIDERS: ADMIT Psychiatry & Neurology Psychiatry; ATTEND Psychiatry & Neurology Psychiatry
PROC: GZHZZZZ Group Psychotherapy (ICD-10-PCS; principal; 2019-01-06)
PROC: GZ58ZZZ Individual Psychotherapy, Cognitive-Behavioral (ICD-10-PCS; 2019-01-06)
DX: F32.9 Major depressive disorder, single episode, unspecified (principal); R45.851 Suicidal ideations; F11.23 Opioid dependence with withdrawal; F10.10 Alcohol abuse, uncomplicated; F17.210 Nicotine dependence, cigarettes, uncomplicated; Z79.899 Other long term (current) drug therapy